=== PATIENT | male | born 1985 | race Caucasian/White ===

== ENCOUNTER 2017-07-06 00:18 | Emergency (ER) | payer SELFPAY ==
[~2017-07-06] VITALS: Ht 170.2 cm; Wt 67.7 kg
[~2017-07-06 00:18] MED LIST: NEXI20CA PO; SUCR1TAB PO; ZOFR4TAB3 SL
[2017-07-06 00:37] VITALS: BP 125/59; PULSE 87; RESP 20; TEMP 99.4; O2SAT 100
[2017-07-06 00:49] VITALS: BP 125/59; PULSE 87; RESP 20; TEMP 99.4; O2SAT 100
[2017-07-06] MEDS ORDERED: CIPR-9 PO (02:43)
--- NOTE | 2017-07-06 02:44 | PD ---
HPI Chief Complaint: Skin Problem Time Seen by Provider: 02:37 Travel History International Travel<30 days: No Contact w/Intl Traveler<30days: No Traveled to known affect area: No History of Present Illness HPI The patient is a 31-year-old male who has been engaging in rectal sex who complains of a "boil" near his rectum noticed yesterday. He denies any fever. PFSH Past Medical History Diminished Hearing: No GERD: Yes Kidney Stones: Yes (hx) Tetanus Vaccination: > 5 Years Influenza Vaccination: No Social History Alcohol Use: Yes (OCCASIONALLY) Tobacco Use: Yes (3/4 PPD) Substance Use: Yes (marijuanna) Allergies-Medications (Allergen,Severity, Reaction): Coded Allergies: No Known Allergies (Unverified , 07/06/17) Reported Meds & Prescriptions Reported Meds & Active Scripts Active No Active Prescriptions or Reported Medications Review of Systems Except as stated in HPI: all other systems reviewed are Neg Physical Exam Narrative GENERAL: Well-nourished, well-developed patient. SKIN: Focused skin assessment warm/dry. HEAD: Normocephalic. EYES: No scleral icterus. No injection or drainage. NECK: Supple, trachea midline. No JVD or lymphadenopathy. CARDIOVASCULAR: Regular rate and rhythm without murmurs, gallops, or rubs. RESPIRATORY: Breath sounds equal bilaterally. No accessory muscle use. GASTROINTESTINAL: Abdomen soft, non-tender, nondistended. MUSCULOSKELETAL: No cyanosis, or edema. BACK: Nontender without obvious deformity. No CVA tenderness. RECTAL EXAM: No masses or tenderness, stool is brown. There is a left-sided, early perirectal abscess present. The area is exquisitely tender. Data Data Last Documented VS Vital Signs Date Time Temp Pulse Resp B/P (MAP) Pulse Ox O2 Delivery O2 Flow Rate FiO2 07/06/17 00:49 99.4 87 20 125/59 (81) 100 Room Air MDM Medical Decision Making Medical Screen Exam Complete: Yes Emergency Medical Condition: Yes Medical Record Reviewed: Yes Differential Diagnosis Perirectal abscess, sebaceous cyst, undifferentiated abscess, anal rectal abscess Narrative Course The patient appears to have a perirectal abscess. He is told that our treatment here is not adequate and that he will have to see a colorectal surgeon. He is to soak the abscess and a tub 3 times daily beginning tonight. He is given Cipro to take twice daily for 10 days. Procedures Procedure Narrative . He was painted with Betadine and a field block was done with lidocaine with epinephrine. Under sterile technique, the abscess was incised and a moderate amount of pus was recovered. There is cellulitic areas surrounding this abscess , this abscess appears to be an early abscess and therefore not mature. Blunt dissection was necessary to get into the abscess cavity. Diagnosis Primary Impression: Perirectal abscess Additional Instructions: As we discussed, follow-up with a colorectal surgeon, set up appointment later on today when her office is open. Sit in a tub of warm water 3 times daily. The antibiotic is one tablet twice daily for 10 days. Med/Other Pt SpecificInfo: Prescription(s) given Scripts Ciprofloxacin (Cipro) 500 Mg Tab 500 MG PO BID for Infection, #20 TAB 0 Refills Prov: Hugh Chapman MD 07/06/17 Disposition: 01 DISCHARGE HOME Condition: Stable Hugh Chapman MD Jul 06, 2017 02:44
[2017-07-06] MEDS ORDERED: CIPROFLOXACIN 750 MG TAB PO ONE (02:45)
[2017-07-06] MEDS ORDERED: PERC7.5T13 PO (02:52)
[2017-07-06] MEDS ORDERED: oxyCODONE/ACETAMINOPHEN 10 MG/325 MG TAB PO ONE (03:00)
[2017-07-06 03:09] VITALS: BP 135/62; PULSE 80; RESP 18; O2SAT 99
== END 2017-07-06 03:11 | disposition home or self-care (01) ==
LOC: PHED 00:18
DX: K61.1 Rectal abscess (principal); F17.210 Nicotine dependence, cigarettes, uncomplicated
CPT/HCPCS: 46040